=== PATIENT | male | born 1960 | race Caucasian/White ===

== ENCOUNTER 2020-11-15 01:21 | Emergency (ER) | payer MEDICAID ==
[~2020-11-15] VITALS: Ht 185.4 cm; Wt 89.0 kg
[2020-11-15 02:02] VITALS: BP 146/80
== END 2020-11-15 02:21 | disposition home or self-care (01) ==
LOC: ER 01:21
DX: T40.991A Poisoning by other psychodysleptics [hallucinogens], accidental (unintentional), initial encounter (principal); F16.129 Hallucinogen abuse with intoxication, unspecified; T59.891A Toxic effect of other specified gases, fumes and vapors, accidental (unintentional), initial encounter; Y92.524 Gas station as the place of occurrence of the external cause; I10 Essential (primary) hypertension; F17.200 Nicotine dependence, unspecified, uncomplicated
CPT/HCPCS: 93005; 99283

== ENCOUNTER 2020-11-22 14:09 | Emergency (ER) | payer MEDICAID, OTHER | END 2020-11-22 14:30 | disposition left against medical advice (07) | LOC: ER 14:09 | DX: Z53.21 Procedure and treatment not carried out due to patient leaving prior to being seen by health care provider (principal) ==